=== PATIENT | female | born 1930 | race Caucasian/White ===

== ENCOUNTER 2017-01-31 04:49 | Inpatient (IN) | payer MEDICARE, OTHER ==
[~2017-01-31 04:49] MED LIST: CARTIA XT240 M1 PO; CLOBETASOL EMOL15 GM TP; COQ-10100 M1 PO; CPAP; CRANBERRY PLUS1 EAC3 PO; FISH OIL 11000 MG/CA PO; FLUTICASONE PRO16 G1; GLUCOSAMINE &1 EAC1 PO; KEFLEX250 M2 PO; LEXAPRO20 M2 PO; MELATONIN 3 MG1 EAC1 PO; MIRALAX17 G2 PO; MYRBETRIQ50 M1 PO; NEXIUM40 M1 PO; PHAZYME250 MG PO; PROPAFENONE HC425 MG PO; TRIAMCINOLONE A15 G4 TP; TRIAMTERENE-HC1 EAC3 PO; TURMERIC CURCUMIN PO; TYLENOL325 M2 PO; VITAMIN D32000 UNI2 PO; VITAMIN E PO; ZYRTEC10 M7 PO
[2017-01-31 06:39] LABS: PROTHROMBIN TIME 11.4 SECONDS (9.0-13.6)
[2017-02-01 04:37] LABS: BASO % 0.1 % (0-2); HGB-HEMOGLOBIN 12.5 gm/dl (12.0-15.5); IMMATURE GRANULOCYTES ABSOLUTE 0.01 tho/cmm (0-0.03); IMMATURE GRANULOCYTES PERCENT 0.1 % (0-0.3); LYMPH % 6.7 % (20-45); LYMPH ABSOLUTE COUNT 0.8 tho/cmm (0.8-4.5); MCH (MEAN CORPUSCULAR HGB) 32.6 pg (28.0-32.0); MCHC MEAN CORPUSCULAR HGB CONC 34.7 % (32.0-36.0); MCV (MEAN CELL VOLUME) 93.8 fl (82.0-96.0); MEAN PLATELET VOLUME 8.6 cmc (9.4-12.4); MONO % 6.2 % (0-12); MONOCYTE ABSOLUTE COUNT 0.7 tho/cmm (0.0-1.2); NEUTROPHILS % 86.9 % (40-80); PLATELET COUNT 291 tho/cmm (150-450); RED BLOOD COUNT 3.84 mil/cmm (4.00-5.20); RED CELL DISTRIBUTION WIDTH 13.3 % (12.4-16.4); WHITE BLOOD COUNT 11.5 tho/cmm (4.0-10.0)
[2017-02-01 04:41] LABS: CREATININE 1.09 mg/dl (0.50-1.10); POTASSIUM 4.1 mmol/L (3.7-5.1); eGFR VALUE FOR BLACK 54 mL/Min
[2017-02-03] MEDS ORDERED: ASPIRIN81 M1 PO (09:22)
[2017-02-03] MEDS ORDERED: NUCYNTA50 M1 PO (09:23)
[2017-02-03] MEDS ORDERED: SENNA-S TABLET1 EAC3 PO (09:25)
[2017-02-03] MEDS ORDERED: ZOFRAN4 M2 PO (13:06)
[2017-02-03] MEDS ORDERED: MILK OF MAGNESIA PO (13:06)
== END 2017-02-03 14:15 | disposition home health service (06) | DRG 470 ==
LOC: SHSB 04:49 → ORE 07:32 → PACU 08:46 → 5EB 10:15
PROVIDERS: Family Medicine; ADMIT Orthopaedic Surgery Foot and Ankle Surgery
PROC: 0SRC0J9 Replacement of Right Knee Joint with Synthetic Substitute, Cemented, Open Approach (ICD-10-PCS; principal; 2017-01-31)
PROC: 5A09357 Assistance with Respiratory Ventilation, Less than 24 Consecutive Hours, Continuous Positive Airway Pressure (ICD-10-PCS; 2017-01-31)
DX: M17.11 Unilateral primary osteoarthritis, right knee (principal); I12.9 Hypertensive chronic kidney disease with stage 1 through stage 4 chronic kidney disease, or unspecified chronic kidney disease; I48.0 Paroxysmal atrial fibrillation; F32.9 Major depressive disorder, single episode, unspecified; E78.5 Hyperlipidemia, unspecified; G25.81 Restless legs syndrome; G47.33 Obstructive sleep apnea (adult) (pediatric); Z96.652 Presence of left artificial knee joint; F41.9 Anxiety disorder, unspecified; K58.9 Irritable bowel syndrome, unspecified; Z87.11 Personal history of peptic ulcer disease; Z88.0 Allergy status to penicillin; N18.2 Chronic kidney disease, stage 2 (mild)
CPT/HCPCS: C1713; C1776; J0171; J0690; J2270; J2795; J3010